=== PATIENT | male | born 1990 | race African-American/Black ===

== ENCOUNTER 2024-05-03 13:19 | Emergency (ER) | payer SELFPAY ==
[~2024-05-03] VITALS: Ht 170.2 cm; Wt 152.0 kg
[2024-05-03 13:26] VITALS: O2SAT 100
[2024-05-03] MEDS: BACITRACIN ZINC OINT UDPKT TOP NR (15:00)
[2024-05-03] MEDS: ACETAMINOPHEN 325MG TABLET PO NR (15:00)
[2024-05-03] MEDS ORDERED: NAPR500T7 PO (15:06)
[2024-05-03] MEDS ORDERED: BO1 TP (15:06)
[2024-05-03 15:15] VITALS: BP 141/68; PULSE 75; RESP 16; TEMP 98.6
== END 2024-05-03 15:16 | disposition home or self-care (01) ==
LOC: ER 13:19
DX: S00.83XA Contusion of other part of head, initial encounter (principal); X58.XXXA Exposure to other specified factors, initial encounter; Y93.89 Activity, other specified; Y92.89 Other specified places as the place of occurrence of the external cause; Y99.8 Other external cause status
CPT/HCPCS: 99283